=== PATIENT | female | born 1955 | race Caucasian/White ===

== ENCOUNTER 2017-11-21 11:03 | Inpatient (IN) | payer BC, MEDICARE, SELFPAY ==
[2017-11-21] VITALS (14 sets, daily range): BP systolic 150–182; BP diastolic 88–101; PULSE 75–100; RESP 15–24; TEMP 36.2–36.3; O2SAT 94–97; BMI 57.1; BMI 62.5; BMI 62.6
--- NOTE | 2017-11-21 11:11 | RAD_ITS ---
STUDY: X-RAY CHEST REASON FOR EXAM: Female, 62 years old. Shortness of breath, dyspnea, back pain. TECHNIQUE: PA and lateral chest COMPARISON: None. FINDINGS: Osteopenia, mild kyphosis, mild multilevel thoracic spondylosis. No acute osseous process. No acute upper abdominal process. Normal cardiomediastinal silhouette, rick and pleural margins. Clear bilateral lungs. There is no infiltrate, effusion, pneumothorax. No focal suspicious pulmonary lesion. RAD/Chest PA and Lateral IMPRESSION: No acute cardiopulmonary process. Electronically Signed: Mike Bianchi, at 12:03 EDT Tel , Service support ,
--- NOTE | 2017-11-21 11:21 | NURSING ---
NO OLD EKGS
[2017-11-21] MEDS: Ipratropium/Albuterol Sulfate 3 ML AMPUL.NEB INHALATION (11:22)
--- NOTE | 2017-11-21 11:26 | ED.DCSUM_ITS ---
- ER Visit Summary Date of Service: 11/21/17 Chief Complaint: Shortness of breath History of Present Illness: The patient is a 62 F who presents with shortness of breath that has been getting worse over the past few days. Patient states her breathing is worse with any exertion. Patient states she has had similar episodes of this in the past and is seeing a payroll and benefits assistant for this. Patient admits to a cough. Patient denies any sputum production. Patient denies any fevers or chills. Patient denies any chest pain but does admit to some pain in her left shoulder and left lower thoracic area. Patient denies any nausea or vomiting. Physical Examination: Vital signs are stable. Patient is afebrile. Patient is in no acute distress. Oral mucosa is pink and moist. Neck is supple. There is no JVD noted. Heart was regular rate and rhythm. Lungs are clear and equal bilaterally. There is adequate respiratory effort noted. Abdomen is soft. Bowel sounds are normal. There is no tenderness. There is no rebound or guarding noted. Cranial nerves II through XII are intact. There are no focal motor or sensory deficits noted. The remaining physical exam is within normal limits. Test Results: EKG showed normal sinus rhythm with a rate of 87. There are nonspecific ST-T wave changes noted. D-dimer was obtained and was elevated. CTA of the chest was obtained. There is bilateral pulmonary emboli noted. There is no saddle embolus noted. Emergency Department Course and Treatment: Patient was started on anticoagulants. Case was discussed with the hospitalist. Patient will be admitted to ICU. Patient and family understood and were agreeable with the plan. All questions were answered. Disposition: Admit to hospital Impression: Bilateral pulmonary emboli This note was generated with [employer] dictation software. It may contain incorrect words, spelling, and punctuation that were not noted in review of the chart prior to signing ED Disposition - Plan for ED Patient: Disposition: Acute Care Hospital [facility] Chief Complaint: Shortness of Breath Diagnosis: Pulmonary emboli Referrals: Annia Bedolla DO [Primary Care Provider] -
[2017-11-21 11:51] LABS: Absolute Lymphocyte Count 1.88 X10^3/ul (0.83-4.51); Absolute Neutrophil Count 7.1 X10^3/uL (2.0-7.7); Basophil# 0.06 X10^3/uL; Basophil% 0.6 % (0-1); Eosinophil# 0.37 X10^3/uL; Eosinophils% 3.6 % (0-5); Hematocrit 45.6 % (37-47); Hemoglobin 14.5 g/dl (12.0-15.0); Lymphocyte # 1.88 X10^3/ul (4.0); Mean Corp Hgb Conc 31.8 g/gl (32-36); Mean Corpuscular Hgb 27.5 pg (27.0-32.0); Mean Corpuscular Volume 86.4 fL (81-99); Mean Platelet Vol. 10.8 fl (6.2-12.0); Monocyte% 9.6 % (0-10); Neutrophil # 7.06 X10^3/uL (2.7-7.7); Neutrophil % 67.7 % (47-70); Platelet Count 185 K/mm3 (150-450); RBC Distribution Width CV 15.5 % (11.6-14.6); RBC Distribution Width SD 49.2 fl (35.1-43.9); Red Blood Count 5.28 M/mm3 (4.2-5.4); White Blood Count 10.4 K/mm3 (4.4-11.0)
[2017-11-21 11:52] LABS: POSITIVE COUNT NO; POSITIVE DIFFERENTIAL NO; POSITIVE MORPHOLOGY NO
[2017-11-21 11:55] LABS: Anion Gap 9 (5-15); BUN 13 mg/dL (7-18); BUN/Creat Ratio 17.4 RATIO (10-20); Chloride 107 mmol/L (98-107); Creatinine, Serum 0.75 mg/dL (0.55-1.02); EST Glomerular Filtration Rate 83 mL/min (>60); Est Glom Filt Rate - Afr Amer 100 mL/min (>60); Estimated Creatinine Clearance 73.69 ml/min; Glucose 113 mg/dL (74-106); Potassium 3.6 mmol/L (3.5-5.1); Sodium Level 142 mmol/L (136-145)
[2017-11-21 12:00] LABS: D-Dimer Quantitative (DVT/PE) 1.93 FEU/ug/m (0.27-0.49)
[2017-11-21 12:20] LABS: BNP,B-Type NATRIURETIC PEPTIDE 80.1 pg/mL (0-100)
--- NOTE | 2017-11-21 12:31 | CT_ITS ---
STUDY: CTA CHEST REASON FOR EXAM: Female, 62 years old. Shortness of breath for one week with elevated d-dimer, worsening shortness of breath, sleep apnea. RADIATION DOSAGE (If Supplied By Facility): CTDIvol = ( 49.88 ) mGy, DLP = ( 1125.57 ) mGycm TECHNIQUE: The examination was performed with the intravenous administration of 100 ml of Isovue 370 contrast material. Post-processing of the angiographic images was performed, with multiplanar reformation and 3D reconstruction. Individualized dose optimization techniques were used for this CT. COMPARISON: X-ray chest 11/21/2017 FINDINGS: Supraclavicular: Enlarged multinodular thyroid likely reflecting substernal goiter. Clinical correlation is advised. Body wall soft tissues: No acute process. Portions of the body wall are not within the field of view due to body habitus constraints. Osseous structures: Osteopenia, multilevel bridging anterior osteophytes of the thoracic spine consistent with diffuse idiopathic hyperostosis. Moderate kyphosis, mild scoliosis. Mild multilevel thoracic facet arthropathy. Mild multilevel foraminal narrowing. No high-grade stenosis is suspected. Upper abdomen: Limited evaluation. No acute process. Mediastinum: Normal esophagus. There is no mass or lymphadenopathy. Lungs: Clear normal bilaterally. Normal airways. Heart: Borderline cardiomegaly without pericardial effusion and without coronary calcifications. No evidence of appendage thrombus. Grossly normal chamber morphology. There is perhaps mild ectasia of the right ventricle with no significant ectasia of the right atrium. There is mild ectasia of the infracardiac IVC. These features suggest mildly elevated right heart pressures secondary to pulmonary embolus. Aorta: Unremarkable. Pulmonary arteries: Dilated central pulmonary arteries, main pulmonary artery 3.6 cm. Bilateral pulmonary embolus extending into the bilateral lower lobes multisegmental, lingula, and bilateral upper lobes multisegmental. There is no central saddle embolus but there is embolus draping over the lobar divisions of the right main pulmonary artery, and the lobar divisions of the left main pulmonary artery. Substantial burden of embolus. CT/CTA Chest W/WO Contrast IMPRESSION: Extensive bilateral pulmonary emboli beginning at the lobar divisions of the right and left main pulmonary arteries extending into multiple upper and lower lung segmental divisions. No acute pulmonary parenchymal changes. No evidence of pulmonary infarct or infiltrate. There is evidence of mildly elevated right heart pressure/right heart strain. No acute pulmonary process. Multinodular substernal goiter. N.B. : The above information has been verbally conveyed by Mike Bianchi to , Covering Physician, on 11/21/2017 13:44:57 (ET). Electronically Signed: Mike Bianchi, at 13:41 EDT Tel , Service support ,
[2017-11-21 14:13] LABS: Partial Thromboplast Time 29.7 Seconds (24.1-36.2)
--- NOTE | 2017-11-21 14:43 | NURSING ---
PCU PE TERELETSKY
--- NOTE | 2017-11-21 14:48 | NURSING ---
Called ED charge nurse to send patient at [phone].
--- NOTE | 2017-11-21 15:09 | PCM.HP.STD ---
Problem List (1) Pulmonary emboli Status: Acute (2) Atypical endometrial hyperplasia Status: Chronic (3) HTN (hypertension) Status: Chronic (4) Morbidly obese Status: Chronic History of Present Illness Date of Admission: 11/21/17 Chief Complaint: sob The patient is a 62 year old F with a PMhx of htn, atypical endometrial hyperplasia - on megace for recurrent vaginal bleeding, who presents to the ER with increased SOB over the past 2 weeks. She states she has been worked up for SOB for the last 2 years by cardiology and pulmonology including PFT testing, and recent (last february) stress test, echo, and heart cath (per Dr. Trinidad) which were negative. In the last two weeks she has been progressively more SOB, severely so with exertion. She walked to the bathroom and started hyperventilating taking 35 minutes to recover. She has left sided posterior rib pain. She has not had any new swelling of her lower extremities. In the ER she underwent a CTA of the chest which did show multiple BL PE's. She has no prior hx of clots, and denies a family hx of clots. She has been on megace for about 2 years for the above. She states the last time she came off of it she bled again. She sees an OBGYN who specializes in oncology. She has been told that she is not a candidate for hysterectomy for unclear reasons. Currently she is resting comfortably in bed on 2 lpm O2 via NC. [] Past Medical History Past Medical History (Chronic Problems): Chronic Problems Atypical endometrial hyperplasia (Chronic) HTN (hypertension) (Chronic) Morbidly obese (Chronic) Allergies No Known Allergies Allergy (Verified 11/21/17 11:04) Home Medications: Ambulatory Orders Medication Instructions Recorded Amlodipine [Norvasc] 5 mg PO DAILY 11/21/17 Lisinopril/Hydrochlorothiazide 1 each PO DAILY 11/21/17 [Zestoretic 20-12.5 mg Tablet] Surgical History: dilatation and curettage Psychiatric History: No pertinent psych hx SCIENTOLOGIST History: dysfunctional uterine bld Lives: Spouse/ Significant Other Smoking Status: Never smoker Tobacco Use: Non-smoker Alcohol: None Drugs: None - *Family History Maternal History Items: Cancer - breast, Diabetes, Hypertension Paternal History Items: Heart Disease - [place] age 42 Review of Systems Constitutional: Denies: Chills, Fever, Weight Change HEENT: Denies: Head Aches, Sinus Congestion, Sinus Drainage Cardiovascular: Denies: Chest Pain, Palpitations Respiratory: Reports: Shortness of Breath, Shortness of breath at rest, Shortness of breath upon exertion. Denies: Cough, Sputum production Gastrointestinal: Denies: Abdominal Pain, Nausea, Vomiting Genitourinary: Denies: Dysuria Musculoskeletal: Denies: Joint Pain, Joint Tenderness Skin: Denies: Rash, Wounds Neurological: Denies: Numbness, Tingling, Focal weakness Psychiatric: Denies: Anxiety, Depression, Homicidal Ideations, Suicidal Ideations Hematologic/ Lymphatic: Denies: Easy Bruising, Easy Bleeding VTE Information - Inpt Only VTE Present on Admission: Yes VTE Mechan Device Prophylaxis: None VTE Pharm Prophylaxis ordered?: Yes Patient Problems: Active and Suspected Problems Pulmonary emboli (Acute) - Physical Exam Vital Signs Temp Pulse Resp BP Pulse Ox 97.4 F L 88 16 158/96 H 95 11/21/17 11:04 11/21/17 15:05 11/21/17 15:05 11/21/17 15:05 11/21/17 15:05 Oxygen Delivery Method Nasal Cannula Assessment/Plan All Active Problems Pulmonary emboli (Acute) 1. Acute BL multiple PEs - start xarelto, obtain AM echo. No personal/family hx of clots. On megace for atypical endocrine hyperplasia - highly prothrombotic. Pt will likely bleed if she discontinues this which will be worse 2/2 xarelto so this will be continues for now. She will need to follow up with her OBGYN/oncologist for other options. Ideally this would include hysterectomy however she has been told she is not a candidate for unclear reasons. -BNP neg. -Recent stress test, cath, echo last february per Dr. Trinidad. -CTA shows evidence of mildly elevated right heart pressure/right heart strain. -cxr neg. 2. HTN - elevated. May need additional agent through stay. 3. Morbid obesity - dietary consult. DVT ppx: covered by xarelto DC planning: Re-evaluate in AM. This patient was seen by Wil St PA-C under the supervision of Doctor Carey.
--- NOTE | 2017-11-21 15:14 | HP.PCM_ITS ---
Problem List (1) Pulmonary emboli Status: Acute (2) Atypical endometrial hyperplasia Status: Chronic (3) HTN (hypertension) Status: Chronic (4) Morbidly obese Status: Chronic History of Present Illness Date of Admission: 11/21/17 Chief Complaint: sob The patient is a 62 year old F with a PMhx of htn, atypical endometrial hyperplasia - on megace for recurrent vaginal bleeding, who presents to the ER with increased SOB over the past 2 weeks. She states she has been worked up for SOB for the last 2 years by cardiology and pulmonology including PFT testing, and recent (last february) stress test, echo, and heart cath (per Dr. Trinidad ) which were negative. In the last two weeks she has been progressively more SOB , severely so with exertion. She walked to the bathroom and started hyperventilating taking 35 minutes to recover. She has left sided posterior rib pain. She has not had any new swelling of her lower extremities. In the ER she underwent a CTA of the chest which did show multiple BL PE's. She has no prior hx of clots, and denies a family hx of clots. She has been on megace for about 2 years for the above. She states the last time she came off of it she bled again. She sees an OBGYN who specializes in oncology. She has been told that she is not a candidate for hysterectomy for unclear reasons. Currently she is resting comfortably in bed on 2 lpm O2 via NC. 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 Denies: Cough, Sputum production Gastrointestinal: Denies: Abdominal Pain, Nausea, Vomiting Genitourinary: Denies: Dysuria Musculoskeletal: Denies: Joint Pain, Joint Tenderness Skin: Denies: Rash, Wounds Neurological: Denies: Numbness, Tingling, Focal weakness Psychiatric: Denies: Anxiety, Depression, Homicidal Ideations, Suicidal Ideations Hematologic/ Lymphatic: Denies: Easy Bruising, Easy Bleeding VTE Information - Inpt Only VTE Present on Admission: Yes VTE Mechan Device Prophylaxis: None VTE Pharm Prophylaxis ordered?: Yes Patient Problems: Active and Suspected Problems Pulmonary emboli (Acute) - Physical Exam Vital Signs Temp Pulse Resp BP Pulse Ox 97.4 F L 88 16 158/96 H 95 11/21/17 11:04 11/21/17 15:05 11/21/17 15:05 11/21/17 15:05 11/21/17 15:05 Oxygen Delivery Method Nasal Cannula Assessment/Plan All Active Problems Pulmonary emboli (Acute) 1. Acute BL multiple PEs - start xarelto, obtain AM echo. No personal/family hx of clots. On megace for atypical endocrine hyperplasia - highly prothrombotic. Pt will likely bleed if she discontinues this which will be worse 2/2 xarelto so this will be continues for now. She will need to follow up with her OBGYN/ oncologist for other options. Ideally this would include hysterectomy however she has been told she is not a candidate for unclear reasons. -BNP neg. -Recent stress test, cath, echo last february per Dr. Trinidad. -CTA shows evidence of mildly elevated right heart pressure/right heart strain. -cxr neg. 2. HTN - elevated. May need additional agent through stay. 3. Morbid obesity - dietary consult. DVT ppx: covered by xarelto DC planning: Re-evaluate in AM. This patient was seen by Wil St PA-C under the supervision of Doctor Carey.
[2017-11-21] MEDS: HEPARIN/D5w 25,000 UNITS 25,000 UNITS/250 ML IV.SOLN. 20 UNITS IV (15:15)
[2017-11-21] MEDS: Rivaroxaban 15 MG Tablet PO (16:45)
[2017-11-22] VITALS (10 sets, daily range): BP systolic 145–154; BP diastolic 80–81; PULSE 62–141; RESP 18–24; TEMP 36.5–36.8; O2SAT 92–97
[2017-11-22] MEDS: Rivaroxaban 15 MG Tablet PO (09:53)
[2017-11-22] MEDS: Lisinopril 20 MG Tablet PO (09:53)
[2017-11-22] MEDS: HYDROCHLOROTHIAZIDE 12.5 MG CAPSULE PO (09:53)
[2017-11-22] MEDS: amLODIPine 5 MG Tablet PO (09:53)
--- NOTE | 2017-11-22 11:00 | CASEMGMT ---
Face to Face with patient for initial transition planning/care coordination assessment. ESSENCE MYERS introduced self and role at [facility], pt voices understanding and consents to assessment at this time. Pt is lying in bed in no distress at this time. Pt is A/Ox4 at this time and answers all questions appropriately at this time. Care providers, pharmacy, and demographics verified. See attached link. Pt voices no further concerns/needs at this time. Advised pt to ask for CM if any further questions/concerns/needs arise, voices understanding. PLAN: Home [facility] ESSENCE MYERS
--- NOTE | 2017-11-22 11:13 | PCM.DC ---
- Discharge Diagnoses Current Active Problems: Current Active and Chronic Problems Pulmonary emboli (Acute) Atypical endometrial hyperplasia (Chronic) HTN (hypertension) (Chronic) Morbidly obese (Chronic) You will use the following diet at home:: Cardiac Your food should be the consistency of: Regular Your liquids should be the consistency of: Regular/Thin Discharge Activity: Return to Normal Activity Allergies/Adverse Reactions: Allergies No Known Allergies Allergy (Verified 11/21/17 11:04) Medications to take at Discharge Amlodipine [Norvasc] 5 mg PO DAILY 11/21/17 Ergocalciferol [Vitamin D] 5,000 units PO DAILY 11/21/17 Fish Oil/Dha/Epa [Fish Oil 1,200 mg Fish Oil] 1 each PO QHS 11/21/17 Lisinopril/Hydrochlorothiazide [Zestoretic 20-12.5 mg Tablet] 1 each PO DAILY 11/21/17 [place]-3S/Dha/Epa/Fish Oil [Fish Oil 1,200 mg Softgel] 2 each PO DAILY 11/21/17 Rivaroxaban [Xarelto] 15 mg PO BIDCM #40 tab 11/22/17 Rivaroxaban [Xarelto] 20 mg PO DAILY #30 tab 11/22/17 The following prescriptions were given: Rivaroxaban [Xarelto] 15 mg PO BIDCM #40 tab Rivaroxaban [Xarelto] 20 mg PO DAILY #30 tab Primary Care Physician: Annia Bedolla DO [Primary Care Provider] - Please follow up with your Primary Care Physician in: 2 weeks Test Results: Test results from this visit will be discussed in further detail at your follow-up appointment, if applicable. Please Follow Up With: Anderson Grimes - call to confirm appointment When: November 26, 2017
--- NOTE | 2017-11-22 11:28 | CASEMGMT ---
Per Michelet DUARTE, pt to be sent home on Xarelto and med e-scribed to [facility]. Call to [facility] pharmacy and per tech, pt's co-pay is $45.00. Pt updated and voices understanding. Pt provided with Xarelto 30 day free trial card and $10 co-pay card as pt has [place] primary and [facility] secondary. Pt voices understanding on cards at this time and activation. Pt states would like [facility] if she qualifies for oxygen as her Cpap is already through them. This RN CM awaiting oxygen testing at this time. [facility] RN CM
--- NOTE | 2017-11-22 14:46 | PCM.DC.SUM ---
<Wil St - Last Filed: 11/22/17 14:46> Discharge Date and Diagnosis Date of Admission: 11/21/17 Date of Discharge: 11/22/17 - Primary Discharge Diagnosis Acute BL PE's suspect 2/2 megace therapy Atypical endometrial hyperplasia HTN Morbid obesity - Secondary Discharge Diagnosis Chronic Problems Atypical endometrial hyperplasia (Chronic) HTN (hypertension) (Chronic) Morbidly obese (Chronic) Hospital Course and Treatment Imaging Results: Echo: Interpretation Summary Normal LV size. Left ventricular systolic function is normal. The estimated ejection fraction is 65 %. Transmitral diastolic flow velocities suggest mild (stage 1) diastolic dysfunction (reversed pattern). Pulmonary artery systolic pressure is 44 mmHg. Contrast injection was performed. CT/CTA Chest W/WO Contrast IMPRESSION: Extensive bilateral pulmonary emboli beginning at the lobar divisions of the right and left main pulmonary arteries extending into multiple upper and lower lung segmental divisions. No acute pulmonary parenchymal changes. No evidence of pulmonary infarct or infiltrate. There is evidence of mildly elevated right heart pressure/right heart strain. No acute pulmonary process. Multinodular substernal goiter. RAD/Chest PA and Lateral IMPRESSION: No acute cardiopulmonary process. Operations: None Procedures: 2-D Echocardiogram Summary of Care Provided: Physical exam on day of discharge: General: Resting comfortably NAD Psych: A/Ox3 normal affect HEENT: PEARRLA AT NC Neck: Supple NT CV: RRR no m/t/r/g/h Resp: CTA Abd: [id number] Soft NT no guarding or rigidity, morbidly obese Ext: DP2+= no edema Skin: W/D normal turgor Lymph/Heme: No active bleeding or adenopathy Neuro: CN2-12 intact Hospital course: The patient is a 62 year old F with a history of morbid obesity, hypertension, atypical endometrial hyperplasia for which she is taking Megace, who presented to the emergency room with worsening of shortness of breath. The patient has had chronic shortness of breath that she has been worked up by pulmonology and cardiology for over the past year including heart catheterizations and stress test, and PFTs. She has not been given any answers. In the last week she had severely worsening of her shortness of breath. She came to the emergency room and a d-dimer was done which was elevated, followed by a CTA of the chest which demonstrated multiple bilateral PEs and a strain pattern. She was started on Xarelto admitted to the PCU on telemetry. Following day she underwent echocardiogram. This showed 65% EF, stage I diastolic dysfunction and pulmonary artery systolic pressure 44 mmHg consistent with pulmonary hypertension. The patient did not continue to require oxygen and was able to be ambulated without any further OT needs. Given her history of taking Megace and no history of personal or family of blood clots, it was felt that this was likely the cause of her emboli. We discontinued this medication at discharge. The last time she was off of that she had bleeding issues. She has not followed up with the person who prescribed it, Dr. Grimes who is an DIGGING MACHINE OPERATOR oncologist in over a year. We strongly advised her to follow-up with him within a week. I called his office in [place], where she goes for care, to report the circumstances of her hospitalization and scheduled an appointment for her for November 26 at the end of this week. She is to call and confirm this appointment with them. She likely needs to undergo a hysterectomy. I explained to her that if she has bleeding she will need to call her doctors or go to the ER as with the Xarelto therapy the bleeding could be heavier than normal. She was discharged home in stable condition. She will also need follow-up with her PCP in 1-2 weeks, and will need a follow up echo to reassess her cardiac function with an echo for follow up given the strain pattern and pulmonary htn. This patient was seen by Wil St PA-C under the supervision of Doctor Brenden. [] Discharge Diet: Low fat/ Low Cholesterol, 2000 mg Sodium Diet Discharge Activity: Return to Normal Activity Home Medications: Medications to take at Discharge Amlodipine [Norvasc] 5 mg PO DAILY 11/21/17 Ergocalciferol [Vitamin D] 5,000 units PO DAILY 11/21/17 Fish Oil/Dha/Epa [Fish Oil 1,200 mg Fish Oil] 1 each PO QHS 11/21/17 Lisinopril/Hydrochlorothiazide [Zestoretic 20-12.5 mg Tablet] 1 each PO DAILY 11/21/17 [place]-3S/Dha/Epa/Fish Oil [Fish Oil 1,200 mg Softgel] 2 each PO DAILY 11/21/17 Rivaroxaban [Xarelto] 15 mg PO BIDCM #40 tab 11/22/17 Rivaroxaban [Xarelto] 20 mg PO DAILY #30 tab 11/22/17 Following Prescrptions Were Given to Patient: Rivaroxaban [Xarelto] 15 mg PO BIDCM #40 tab Rivaroxaban [Xarelto] 20 mg PO DAILY #30 tab Primary Care Physician: Annia Bedolla DO [Primary Care Provider] - Please follow up with your Primary Care Physician in: 2 weeks Please Follow Up With: Anderson Grimes When: November 26, 2017 Medical Necessity - Tobacco Use Smoking Status: Never smoker Tobacco Use: Non-smoker Meaningful Use Info Meaningful Use Diagnoses (Choose all that apply): VTE - VTE Anticoag overlap given w/in hospital stay or rx'd at dc?: No Pt receive overlap for 5 days?: No Reason overlap not ordered, prescribed, or given for 5 days: Procedure Not Indicated <Gamaliel Wilcox - Last Filed: 11/22/17 15:09> Discharge Date and Diagnosis - Secondary Discharge Diagnosis Chronic Problems Atypical endometrial hyperplasia (Chronic) HTN (hypertension) (Chronic) Morbidly obese (Chronic) Hospital Course and Treatment Summary of Care Provided: The patient is a 62 year old F lady with history of atypical endometrial hyperplasia on Megace who presented with shortness of breath. Patient was found to have bilateral multiple pulmonary embolism. This was attributed to patient Megace which was discontinued. Patient was started on systemic anticoagulation noted to a monitored bed where she underwent subsequent evaluation included CAD echo which did demonstrate RVSP of 40 mmHg. Patient was instructed to follow-up with her DIGGING MACHINE OPERATOR to consider forms of treatment including hysterectomy. Her Megace was discontinued on discharge Patient was seen and examined with Wil St to patient being discharged is noted recommendations as above reviewed. Do concur Time spent in discharge process 45 minutes. Code Visit Inpatient E&M: 46610 Disch Hosp
== END 2017-11-22 14:24 | disposition home or self-care (01) | DRG 176 ==
LOC: ED 13:53 → PCU 14:45
PROVIDERS: Admitting Provider Internal Medicine; Emergency Provider Emergency Medicine; Family Provider Internal Medicine; PCP Internal Medicine; Visit Provider Internal Medicine
DX: I26.99 Other pulmonary embolism without acute cor pulmonale (principal); I10 Essential (primary) hypertension; E66.01 Morbid (severe) obesity due to excess calories; N85.02 Endometrial intraepithelial neoplasia [EIN]; Z79.818 Long term (current) use of other agents affecting estrogen receptors and estrogen levels; G47.30 Sleep apnea, unspecified
CPT/HCPCS: 71046; 71275; 80048; 83880; 85025; 85379; 85730; 93005; 93306; 94640; 99285; Q9957; Q9967; A4216; C8929

== ENCOUNTER → 2017-12-16 12:52 | Outpatient (CLI) | payer BC, MEDICARE, SELFPAY ==
[2017-12-16 15:15] LABS: Homocysteine 12.7 umol/L (3.2-10.7)
[2017-12-21 20:07] LABS: Protein C Antigen 157 % (60-150)
[2017-12-22 11:29] LABS: Anti-Cardiolipin Ab, IgA, Qn < 9 APL U/mL (0-11); Anti-Cardiolipin Ab, IgG, Qn < 9 GPL U/mL (0-14); Anti-Cardiolipin Ab, IgM, Qn < 9 MPL U/mL (0-12); Anti-Thrombin 3 AG, Immunol 90 % (72-124); Antithrombin 3 Function 119 % (75-135); Beta-2-Glycoprotein I IgA <9 (0-25); Beta-2-Glycoprotein I IgG <9 (0-20); Beta-2-Glycoprotein I IgM <9 (0-32); Protein C, Functional 184 % (73-180); Protein S, Free 132 % (57-157); Protein S, Funtional 99 % (63-140); Protein S, Total 109 % (60-150)
== END ==
PROVIDERS: Family Provider Internal Medicine; PCP Internal Medicine; Visit Provider Internal Medicine
DX: Z12.31 Encounter for screening mammogram for malignant neoplasm of breast (principal); I26.99 Other pulmonary embolism without acute cor pulmonale
CPT/HCPCS: 36415; 77063; 77067; 81240; 81241; 81291; 83090; 85300; 85301; 85302; 85303; 85305; 85306; 86146; 86147

== ENCOUNTER → 2017-12-27 11:05 | Outpatient (CLI) | payer BC, MEDICARE, SELFPAY ==
[2017-12-27 11:32] LABS: International Normalized Ratio 1.5; Prothrombin Time (Protime)PT. 17.8 SECONDS (11.7-14.9)
== END ==
PROVIDERS: Family Provider Internal Medicine; PCP Internal Medicine; Visit Provider Internal Medicine
DX: I26.99 Other pulmonary embolism without acute cor pulmonale (principal)
CPT/HCPCS: 85610

== ENCOUNTER → 2018-01-04 10:31 | Outpatient (CLI) | payer BC, MEDICARE, SELFPAY ==
--- NOTE | 2018-01-04 10:34 | CT_ITS ---
STUDY: CTA CHEST REASON FOR EXAM: Female, 62 years old. History of pulmonary embolism. Follow-up examination. RADIATION DOSAGE (If Supplied By Facility): CTDIvol = ( 23.83 ) mGy, DLP = ( 1095.92 ) mGycm TECHNIQUE: The examination was performed with the intravenous administration of 100 ml of Isovue 370 contrast material. Post-processing of the angiographic images was performed, with multiplanar reformation and 3D reconstruction. Individualized dose optimization techniques were used for this CT. COMPARISON: Comparison is made with prior examination dated November 21, 2017. FINDINGS: There is elevation of the right hemidiaphragm. Normal enhancement of the main pulmonary artery and right and left pulmonary arteries. Normal enhancement of the bilateral peripheral pulmonary arteries. There is no demonstrated pulmonary embolism. Normal thoracic aorta and visualized great vessels. There is no demonstrated aortic dissection. Normal heart and pericardium. There are visualized mediastinal lymph nodes, which are within normal size limits, and with normal morphology. Normal hilar regions. Normal visualized trachea and bronchi. The lungs are well expanded. Minimal increased linear markings at the left lung base suggestive of a linear scarring. Normal pleura. Normal chest wall structures. There are degenerative changes of thoracic spine. Normal visualized upper abdomen. CT/CTA Chest W/WO Contrast IMPRESSION: There is no evidence of a pulmonary embolism. Findings suggestive of mild scarring at the left lung base. Electronically Signed: Melvin Aden MD at 15:58 EDT Tel [phone], Service support ,
== END ==
PROVIDERS: Family Provider Internal Medicine; PCP Internal Medicine; Referring Provider Internal Medicine; Visit Provider Internal Medicine
DX: I26.99 Other pulmonary embolism without acute cor pulmonale (principal)
CPT/HCPCS: 71275; Q9967; A4216

== ENCOUNTER → 2018-01-10 10:00 | Outpatient (CLI) | payer BC, MEDICARE, SELFPAY ==
--- NOTE | 2018-01-10 10:05 | VDLE_ITS ---
Reason For Study: PULM EMB RIGHT LEFT GSV is normal. GSV is normal. CFV is compressible, spontaneous, phasic, CFV is compressible, spontaneous, phasic, competent and demonstrates normal competent, and demonstrates normal augmentation. augmentation. FV is compressible, spontaneous, phasic, FV is compressible, spontaneous, phasic, competent and demonstrates normal competent and demonstrates normal augmentation. augmentation. POP V is compressible, spontaneous, phasic, POP V is compressible, spontaneous, phasic, competent and demonstrates normal competent and demonstrates normal augmentation. augmentation. T/P Trunk is compressible. T/P Trunk is compressible. PTV is compressible. PTV is compressible. RT PerV is compressible. LT PerV is compressible. Procedure Exam performed in department. A preliminary report was called and/or faxed to DR ESTEVES. Interpretation Summary No evidence for acute deep venous thrombosis bilateral lower extremities with patent and compressible bilateral great saphenous veins. Ordering Physician: Santos Esteves Referring Physician: RAJEEV RODRIGUEZ Performed By: Indy Lyons, RDCS, RVT
== END ==
PROVIDERS: Family Provider Internal Medicine; PCP Internal Medicine; Referring Provider Internal Medicine Medical Oncology; Visit Provider Internal Medicine Medical Oncology
DX: I26.99 Other pulmonary embolism without acute cor pulmonale (principal)
CPT/HCPCS: 93970

== ENCOUNTER 2020-08-22 13:56 | Emergency (ER) | payer MEDICARE, SELFPAY ==
[2020-08-22 13:58] VITALS: BP 204/92; PULSE 104; RESP 22; TEMP 36.6; O2SAT 92; BMI 63.2
--- NOTE | 2020-08-22 14:04 | EKG12_ITS ---
Test Reason : CP Blood Pressure : / mmHG Vent. Rate : 087 BPM Atrial Rate : 087 BPM P-R Int : 198 ms QRS Dur : 192 ms QT Int : 434 ms P-R-T Axes : 059 -08 109 degrees QTc Int : 522 ms Normal sinus rhythm Left bundle branch block Abnormal ECG Confirmed by YASMIN DUDLEY, SARATH ([id number]), editor newspaper OLEKSANDR JUAN ([id number]) on 08/26/2020 2:55:44 PM Referred By: RAPHAEL Confirmed By:SARATH HOFFMAN MD
[2020-08-22 14:26] LABS: Absolute Lymphocyte Count 1.98 X10^3/uL (0.83-4.51); Absolute Neutrophil Count 5.3 X10^3/uL (2.0-7.7); Basophil# 0.08 X10^3/uL; Basophil% 0.9 % (0-1); Eosinophil# 0.46 X10^3/uL; Eosinophils% 5.3 % (0-5); Hematocrit 46.6 % (37-47); Hemoglobin 14.8 g/dL (12.0-15.0); Lymphocyte # 1.98 X10^3/ul (0.83-4.51); Mean Corp Hgb Conc 31.8 g/dL (32-36); Mean Corpuscular Hgb 27.2 pg (27.0-32.0); Mean Corpuscular Volume 85.5 fL (81-99); Mean Platelet Vol. 10.8 fl (6.2-12.0); Monocyte# 0.69 X10^3/uL; NRBC Flagged by Analyzer 0 % (0-5); Neutrophil # 5.32 X10^3/uL (2.7-7.7); Platelet Count 259 K/mm3 (150-450); RBC Distribution Width CV 15.3 % (11.6-14.6); RBC Distribution Width SD 47.4 fl (35.1-43.9); Red Blood Count 5.45 M/mm3 (4.2-5.4); White Blood Count 8.6 K/mm3 (4.4-11.0)
--- NOTE | 2020-08-22 14:29 | NURSING ---
PER TERRY SHARMA, BLUE TOP HEMOIZED
[2020-08-22 14:46] LABS: Anion Gap 1 (5-15); BUN 11 mg/dL (7-18); BUN/Creat Ratio 15.9 RATIO (10-20); Calcium,Total 10.3 mg/dL (8.5-10.1); Chloride 108 mmol/L (98-107); Creatinine, Serum 0.69 mg/dL (0.55-1.02); EST Glomerular Filtration Rate 90 mL/min (>60); Est Glom Filt Rate - Afr Amer 109 mL/min (>60); Estimated Creatinine Clearance 53.09 ml/min; Glucose 112 mg/dL (74-106); Potassium 4.6 mmol/L (3.5-5.1); Sodium Level 140 mmol/L (136-145)
--- NOTE | 2020-08-22 15:16 | RAD_ITS ---
STUDY: X-RAY CHEST REASON FOR EXAM: Female, 65 years old. Increased shortness of breath today, chest pain since yesterday. TECHNIQUE: PA and lateral COMPARISON: 03/10/2017. FINDINGS: Mild prominence of interstitial markings in the lower lobes.. There is no demonstrated pleural abnormality. Borderline cardiomegaly.. Normal mediastinum and rick. Normal visualized pulmonary arteries. Normal visualized aortic arch and descending thoracic aorta. Dorsal spine and shoulders demonstrate degenerative change. Normal visualized ribs, and clavicles. There is no demonstrated abnormality of the visualized soft tissue structures of the upper abdomen. No significant changes since prior exam RAD/Chest PA and Lateral IMPRESSION: Chronic interstitial changes of the lung bases. No focal infiltrate or gross pulmonary edema. Electronically Signed: Fredi Richter MD at 16:20 EDT , Service support ,
--- NOTE | 2020-08-22 15:21 | ED.VIS.CHEST ---
HPI History of Present Illness Chief Complaint: Chest Pain Detail of Chief Complaint: Dyspnea, dyspnea on exertion and pleuritic chest pain Informant: patient Onset/Context/Timing Onset: Weeks Activity at onset: gradual, light activity and exertion Timing: Continuous (The short this of breath is now continuous) and Intermittent (The chest pain is intermittent and with breathing) Quality: Positive for Pain Location: Right Parasternal and - (Right scapular region) Maximum Severity: Moderate Worsened By: Breathing Relieved By: Nothing Associated Symptoms: Positive for Dyspnea and Cough Narrative Prior Similar Symptoms: Yes (Prior pulmonary embolus, 1.5 years ago) Recent Illness/Hospitalization: No CVD Risk Factors: Positive for Hypertension; Negative for Diabetes, Hypercholesterolemia and Family History 1' </=55 PE Risk Factors: Positive for Prior DVT or PE; Negative for Recent Travel/Surgery, Recent Immobilization and Cancer TAD Risk Factors: Positive for Hypertension; Negative for Marfan's Syndrome and Family History [facility] Medical History Abnormal TSH Hypercalcemia Hyperglyceridemia Hypertension GIFTY on CPAP Osteoarthritis Thrombosis with hyperhomocysteinemia Vitamin D deficiency Home Medications amlodipine 5 mg PO DAILY 01/25/13 [History Last Taken 03/29/15] lisinopril-hydrochlorothiazide [Zestoretic 20-12.5 mg Tablet] 1 ea PO DAILY 01/03/15 [History Last Taken Unknown] fish oil-dha-epa 1 ea PO QHS 11/21/17 [History Last Taken 11/20/17 22:00] cholecalciferol (vitamin D3) [Optimal D3] 50,000 unit PO DAILY 12/30/17 [History Last Taken Unknown] folic acid 0.4 mg PO DAILY@0800 12/30/17 [History Last Taken Unknown] vitamin B complex 1 ea PO DAILY 12/30/17 [History Last Taken Unknown] ibuprofen 600 mg PO Q8H PRN PRN #20 tablet 08/22/20 [Rx Last Taken Unknown] Allergy/AdvReac Type Severity Reaction Status Date / Time No Known Allergies Allergy Verified 12/30/17 09:20 Family History Mother Hypothyroidism Diabetes Hypertension Breast cancer Father Heart disease Surgical History History of carpal tunnel release History of section History of cholecystectomy History of dilation and curettage Social History (Updated 08/22/20 @ 15:[address] Marlon Moore MD) household members: spouse housing: house Smoking Status: Never smoker alcohol intake: current alcohol intake frequency: holidays/special occasions only substance use type: does not use ROS ROS ED Constitutional Constitutional ED: Denies chills, fever(s), subjective, sweats, weight loss or other Eyes Eyes: Denies blurry vision, change in vision, diplopia or other ENT ENT ED: Denies ear pain, rhinorrhea or sore throat Cardiovascular Cardiovascular: Reports chest pain; Denies orthopnea, palpitations, paroxysmal nocturnal dyspnea or racing heartbeat Respiratory/Chest Respiratory/Chest: Reports cough, dyspnea and dyspnea on exertion; Denies orthopnea, paroxysmal nocturnal dyspnea or sputum Gastrointestinal Gastrointestinal: Denies abdominal pain, constipation, diarrhea, melena, nausea, vomiting or other Musculoskeletal Musculoskeletal: Denies arthralgias, back pain, myalgias or neck pain Integumentary Denies rash Neurologic Neurologic: Denies headache(s) or weakness Endocrine Endocrinology: Denies polydipsia, polyphagia or polyuria Hematologic/Lymphatic Hematologic/Lymphatic: Denies easy bruising EXAM Physical Exam Const Vital Signs: 08/22/20 13:58 08/22/20 15:52 08/22/20 15:53 Temperature 98 F Temperature Source Temporal Pulse Rate 104 H 78 Respiratory Rate 22 H 18 Respiratory Effort Normal Non-Labored Respiratory Pattern Normal Blood Pressure 204/92 H 176/73 H Blood Pressure Mean 129 107 Pulse Ox 92 95 95 Oxygen Delivery Method Room Air Room Air Room Air 08/22/20 16:36 Temperature Temperature Source Pulse Rate 84 Respiratory Rate 18 Respiratory Effort Respiratory Pattern Blood Pressure Blood Pressure Mean Pulse Ox 95 Oxygen Delivery Method Room Air Positive well nourished, well developed and obese General Appearance ED: well developed and NAD Nutritional Appearance: obese HEENT Reports moist mucous membranes normocephalic and atraumatic Eyes PERRL and EOMs intact bilaterally General Eye ED: Negative for pale conjunctiva or scleral icterus Neck no lymphadenopathy, supple and no JVD General: Negative for tenderness Chest Wall inspection of chest normal Resp normal respiratory effort and clear to auscultation bilaterally Effort and Inspection: respiratory distress Cardio regular rhythm and S1 normal heart sound Rate: tachycardic GI normal to inspection, nondistended, normoactive bowel sounds Back/Spine no CVA tenderness; Negative for no thoracic nor lumbar tenderness Extremity normal to inspection Extremity Narrative: There is no asymmetry, swelling, discoloration, leg vein distention, palpable cords or tenderness along the distribution of the deep venous system. General Extremety ED: Yes edema; Negative for tenderness General Extremity: edema Neuro oriented x3 and no sensory deficits noted Sensorium / Orientation: awake and alert Motor Exam: strength 5/5 throughout Psych mental status grossly normal Skin no rashes or lesions noted MDM MDM MDM Narrative Medical decision making narrative: Patient presents with pleuritic chest pain. With prior history of DVT/PE she is not PERC negative. D-dimer was obtained. If D-dimer is elevated she will need a CTA of her chest. Chest x-ray was obtained to determine if she has pneumonia or other abnormalities that may explain her dyspnea. Since patient had moderate pretest probability for PE with elevated D-dimer CTA was obtained. CTA reveals no acute pathology. Patient was discharged with diagnosis of pleurisy. Lab Data Attestation: I reviewed the patient's lab results. Labs: Laboratory Results - last 24 hr 08/22/20 08/22/20 08/22/20 14:15 14:15 14:15 WBC 8.6 RBC 5.45 H Hgb 14.8 Hct 46.6 MCV 85.5 MCH 27.2 MCHC 31.8 L RDW Std Deviation 47.4 H RDW Coeff of Benoit 15.3 H Plt Count 259 MPV 10.8 Immature Gran % (Auto) 0.800 Neut % (Auto) 62.0 Lymph % (Auto) 23.0 Wayne % (Auto) 8.0 Eos % (Auto) 5.3 H Baso % (Auto) 0.9 Absolute Neuts (auto) 5.3 Absolute Lymphs (auto) 1.98 Nucleated RBC % 0 PT Cancelled INR Cancelled D-Dimer Quant (PE/DVT) Sodium 140 Potassium 4.6 Chloride 108 H Carbon Dioxide 31.0 Anion Gap 1 L BUN 11 Creatinine 0.69 Estim Creat Clear Calc 53.09 Est GFR (MDRD) Af Amer 109 Est GFR (MDRD) Non-Af 90 BUN/Creatinine Ratio 15.9 Glucose 112 H Calcium 10.3 H Troponin I < 0.015 05/08/22/20 08/22/20 14:15 15:30 15:30 WBC 9.1 RBC 5.11 Hgb 14.0 Hct 43.9 MCV 85.9 MCH 27.4 MCHC 31.9 L RDW Std Deviation 47.9 H RDW Coeff of Benoit 15.1 H Plt Count 257 MPV 10.7 Immature Gran % (Auto) 0.700 Neut % (Auto) 64.5 Lymph % (Auto) 20.8 Wayne % (Auto) 8.2 Eos % (Auto) 4.9 Baso % (Auto) 0.9 Absolute Neuts (auto) 5.9 Absolute Lymphs (auto) 1.89 Nucleated RBC % 0 PT 12.1 INR 1.0 D-Dimer Quant (PE/DVT) Cancelled 0.65 H* Sodium Potassium Chloride Carbon Dioxide Anion Gap BUN Creatinine Estim Creat Clear Calc Est GFR (MDRD) Af Amer Est GFR (MDRD) Non-Af BUN/Creatinine Ratio Glucose Calcium Troponin I 08/22/20 15:30 WBC RBC Hgb Hct MCV MCH MCHC RDW Std Deviation RDW Coeff of Benoit Plt Count MPV Immature Gran % (Auto) Neut % (Auto) Lymph % (Auto) Wayne % (Auto) Eos % (Auto) Baso % (Auto) Absolute Neuts (auto) Absolute Lymphs (auto) Nucleated RBC % PT INR D-Dimer Quant (PE/DVT) Sodium 141 Potassium 3.6 Chloride 107 Carbon Dioxide 32.0 Anion Gap 2 L BUN 12 Creatinine 0.68 Estim Creat Clear Calc 53.09 Est GFR (MDRD) Af Amer 112 Est GFR (MDRD) Non-Af 93 BUN/Creatinine Ratio 17.8 Glucose 101 Calcium 10.3 H Troponin I Radiography Chest X-Ray - ED: 1 View, Read by ED Physician, Normal, Heart, Lungs, Mediastinum, Bony Structures and No Acute Disease Diagnostic Testing: Radiology Impression Chest X-Ray 08/22/20 15:16 IMPRESSION: Chronic interstitial changes of the lung bases. No focal infiltrate or gross pulmonary edema. Electronically Signed: Fredi Richter MD at 16:20 EDT , Service support , Chest CTA 08/22/20 15:54 IMPRESSION: Less than optimal opacification of pulmonary arteries but no evidence for pulmonary embolus Minor interstitial thickening in the lower lobes. No cardiopulmonary pathology. Electronically Signed: Fredi Richter MD at 16:46 EDT , Service support , With no abnormality on chest x-ray elevated D-dimer even after correction for age will obtain CTA of the chest to rule out pulmonary embolus. Discharge Plan Triage Chief Complaint: Chest Pain ED Provider: Marlon Moore Dx/Rx/DC Orders Clinical Impression: Pleuritic chest pain Instructions: ED Pleurisy Prescriptions: New ibuprofen 600 MG tablet 600 mg PO Q8H PRN PRN (Reason: chest pain) Qty: 20 RF: 0 No Action amlodipine 5 MG tablet 5 mg PO DAILY RF: 0 lisinopril-hydrochlorothiazide [Zestoretic] 1 EACH tablet 1 ea PO DAILY RF: 0 fish oil-dha-epa 1 EACH capsule 1 ea PO QHS RF: 0 folic acid 0.4 MG tablet 0.4 mg PO DAILY@0800 RF: 0 vitamin B complex 1 EACH capsule 1 ea PO DAILY RF: 0 cholecalciferol (vitamin D3) [Optimal D3] 50,000 UNIT capsule 50,000 unit PO DAILY RF: 0 Primary Care Provider: Annia Bedolla Referrals: Annia Bedolla DO [Primary Care Provider] - 1 Week if not improving Disposition Disposition: Home, self care
[2020-08-22 15:35] LABS: Absolute Lymphocyte Count 1.89 X10^3/uL (0.83-4.51); Absolute Neutrophil Count 5.9 X10^3/uL (2.0-7.7); Basophil# 0.08 X10^3/uL; Basophil% 0.9 % (0-1); Eosinophil# 0.45 X10^3/uL; Eosinophils% 4.9 % (0-5); Hematocrit 43.9 % (37-47); Lymphocyte # 1.89 X10^3/ul (0.83-4.51); Lymphocyte % 20.8 % (19-41); Mean Corp Hgb Conc 31.9 g/dL (32-36); Mean Corpuscular Hgb 27.4 pg (27.0-32.0); Mean Corpuscular Volume 85.9 fL (81-99); Mean Platelet Vol. 10.7 fl (6.2-12.0); Monocyte# 0.75 X10^3/uL; Monocyte% 8.2 % (0-10); NRBC Flagged by Analyzer 0 % (0-5); Neutrophil # 5.87 X10^3/uL (2.7-7.7); Neutrophil % 64.5 % (47-70); Platelet Count 257 K/mm3 (150-450); RBC Distribution Width CV 15.1 % (11.6-14.6); RBC Distribution Width SD 47.9 fl (35.1-43.9); Red Blood Count 5.11 M/mm3 (4.2-5.4); White Blood Count 9.1 K/mm3 (4.4-11.0)
[2020-08-22 15:46] LABS: Anion Gap 2 (5-15); BUN 12 mg/dL (7-18); BUN/Creat Ratio 17.8 RATIO (10-20); Calcium,Total 10.3 mg/dL (8.5-10.1); Chloride 107 mmol/L (98-107); Creatinine, Serum 0.68 mg/dL (0.55-1.02); EST Glomerular Filtration Rate 93 mL/min (>60); Est Glom Filt Rate - Afr Amer 112 mL/min (>60); Estimated Creatinine Clearance 53.09 ml/min; Glucose 101 mg/dL (74-106); Potassium 3.6 mmol/L (3.5-5.1); Prothrombin Time (Protime)PT. 12.1 SECONDS (11.7-14.9); Sodium Level 141 mmol/L (136-145)
[2020-08-22 15:52] VITALS: BP 176/73; PULSE 78; RESP 18; O2SAT 95
[2020-08-22 15:52] LABS: D-Dimer Quantitative (DVT/PE) 0.65 FEU/ug/m (0.27-0.49)
[2020-08-22 15:53] VITALS: O2SAT 95
--- NOTE | 2020-08-22 15:54 | CT_ITS ---
STUDY: CTA CHEST REASON FOR EXAM: Female, 65 years old. Moderate pretest probability with positive D-dimer RADIATION DOSAGE (If Supplied By Facility): CTDIvol = ( 25.52 ) mGy, DLP = ( 1132.32 ) mGycm TECHNIQUE: The examination was performed with the intravenous administration of IV 100mL Isovue-370. Post-processing of the angiographic images was performed, with multiplanar reformation and 3D reconstruction. Individualized dose optimization techniques were used for this CT. COMPARISON: 01/04/2018 FINDINGS: There is less than optimal opacification of the pulmonary arteries due to mildly delayed bolus and partial washout however, there is no demonstrated evidence for intraluminal clot to the level of the distal subsegmental vessels... Minor atherosclerotic changes of the aorta without evidence for aneurysm. There is no demonstrated aortic dissection. Heart is enlarged. Normal mediastinum. Normal hilar regions. Normal visualized trachea and bronchi. The lungs are well expanded. There is minor interstitial thickening at the lung bases. No focal infiltration or pulmonary nodule Normal pleura. Normal chest wall structures. Dorsal spine demonstrates degenerative change Small hiatal hernia is noted. Normal visualized upper abdomen. CT/CTA Chest W/WO Contrast IMPRESSION: Less than optimal opacification of pulmonary arteries but no evidence for pulmonary embolus Minor interstitial thickening in the lower lobes. No cardiopulmonary pathology. Electronically Signed: Fredi Richter MD at 16:46 EDT , Service support ,
[2020-08-22 16:36] VITALS: PULSE 84; RESP 18; O2SAT 95
[2020-08-22 17:11] VITALS: BP 151/87; PULSE 78; RESP 20; TEMP 36.6; O2SAT 96
[2020-08-22 17:15] VITALS: PULSE 18
== END 2020-08-22 17:15 | disposition home or self-care (01) ==
PROVIDERS: Emergency Provider Emergency Medicine; PCP Internal Medicine
DX: R07.81 Pleurodynia (principal); Z86.711 Personal history of pulmonary embolism; Z86.718 Personal history of other venous thrombosis and embolism; E66.9 Obesity, unspecified; I44.7 Left bundle-branch block, unspecified; G47.33 Obstructive sleep apnea (adult) (pediatric); I10 Essential (primary) hypertension; Z90.49 Acquired absence of other specified parts of digestive tract
CPT/HCPCS: 71046; 71275; 80048; 84484; 85025; 85379; 85610; 90471; 93005; 99285; Q9967; A4216

== ENCOUNTER 2022-06-21 20:54 | Emergency (ER) | payer MEDICARE, SELFPAY ==
[2022-06-21 20:56] VITALS: BP 171/87; PULSE 91; RESP 18; TEMP 36.7; O2SAT 97
[2022-06-21 21:10] VITALS: BMI 61.4
--- NOTE | 2022-06-21 21:10 | EKG12_ITS ---
Test Reason : CP Blood Pressure : / mmHG Vent. Rate : 097 BPM Atrial Rate : 097 BPM P-R Int : 160 ms QRS Dur : 190 ms QT Int : 410 ms P-R-T Axes : 000 -01 114 degrees QTc Int : 520 ms Normal sinus rhythm Left bundle branch block Abnormal ECG Confirmed by CHETAN DUDLEY, GER ([id number]), magazine editor OLEKSANDR JUAN ([id number]) on 06/22/2022 1:59:26 PM Referred By: Confirmed By:GER BENTON MD
[2022-06-21 21:18] VITALS: BP 147/71; BP 161/74; BP 180/111; PULSE 110; PULSE 88; PULSE 92
[2022-06-21 21:26] LABS: Absolute Lymphocyte Count 1.78 X10^3/uL (0.83-4.51); Absolute Neutrophil Count 4.9 X10^3/uL (2.0-7.7); Basophil% 1.2 % (0-1); Eosinophils% 6.1 % (0-5); Hematocrit 47.4 % (37-47); Hemoglobin 14.8 g/dL (12.0-15.0); Lymphocyte # 1.78 X10^3/ul (0.83-4.51); Lymphocyte % 21.6 % (19-41); Mean Corp Hgb Conc 31.2 g/dL (32-36); Mean Corpuscular Hgb 27.5 pg (27.0-32.0); Mean Corpuscular Volume 87.9 fL (81-99); Monocyte# 0.89 X10^3/uL; Monocyte% 10.8 % (0-10); NRBC Flagged by Analyzer 0 % (0-5); Neutrophil # 4.88 X10^3/uL (2.7-7.7); Neutrophil % 59.2 % (47-70); Platelet Count 288 K/mm3 (150-450); RBC Distribution Width CV 15.1 % (11.6-14.6); RBC Distribution Width SD 48.6 fl (35.1-43.9); Red Blood Count 5.39 M/mm3 (4.2-5.4); White Blood Count 8.2 K/mm3 (4.4-11.0)
--- NOTE | 2022-06-21 21:42 | RAD_ITS ---
EXAM: XR CHEST, 2 VIEWS CLINICAL INDICATION: Dyspnea on exertion TECHNIQUE: Frontal and lateral views of the chest. This report was created using [id number] report generation technology. COMPARISON: Previous chest radiographs of 08/22/2020. FINDINGS: LIMITATIONS: Lateral view degraded by motion artifact. LUNGS AND PLEURAL SPACES: Unremarkable. No consolidation or edema. No pneumothorax. No effusion. HEART: Chronic borderline cardiomegaly. Normal pulmonary vasculature. MEDIASTINUM: Stable minimal elongation of the thoracic aorta. Stable hilar vascular markings. BONES/JOINTS: Flowing thoracic osteophytes with fusion of several of the mid to lower thoracic disc spaces. No acute osseous abnormality. SOFT TISSUES: Unremarkable. RAD/Chest PA and Lateral IMPRESSION: No significant interval change or acute process. Electronically Signed: Benedicto Magaña MD at 22:46 EDT ,
[2022-06-21 21:47] LABS: Anion Gap 8 (5-15); BUN 16 mg/dL (7-18); BUN/Creat Ratio 23.7 RATIO (10-20); Calcium,Total 10.5 mg/dL (8.5-10.1); Chloride 107 mmol/L (98-107); Creatinine, Serum 0.68 mg/dL (0.55-1.02); EST Glomerular Filtration Rate 92 mL/min (>60); Est Glom Filt Rate - Afr Amer 111 mL/min (>60); Estimated Creatinine Clearance 52.36 ml/min; Glucose 147 mg/dL (74-106); Potassium 3.3 mmol/L (3.5-5.1); Sodium Level 145 mmol/L (136-145); Troponin-I HS 32 pg/mL (3.0-54.0)
[2022-06-21 22:03] VITALS: BP 147/67; PULSE 84; RESP 17; O2SAT 95
--- NOTE | 2022-06-21 22:16 | EDS_ITS ---
HPI History of Present Illness Chief Complaint: Chest Pain Detail of Chief Complaint: [place] like I was going to pass out on 3 separate occasions and see HPI narra Informant: patient and family Onset/Context/Timing Onset: Days Context: Sudden Onset Timing: Intermittent Quality: Sensation of passing out and see HPI neuro Location: At home Current Severity: Gone Maximum Severity: Moderate Worsened by: HPI narrative Relieved by: Nothing Associated Symptoms Associated Symptoms: Altered vision without diplopia and fluttering in her chest with a burning Narrative Narrative: Patient is a 66-year-old woman with history of hypertension who presents because of the sensation that she may pass out. This occurred after she brijesh from bed. She was sitting in a chair. She states her vision was changed and had unusual sensation in her arm and fluttering in her chest. She denied dyspnea at rest. She has chronic dyspnea with activity. She denied nausea, vomiting or diaphoresis. She had 2 additional episodes. Second 1 occurred when she was reading. The third episode occurred when she was sitting. She did not have loss of bowel or bladder dysfunction. She did not have loss of postural tone. She presently denies headache. He denies double vision blurred vision loss of vision. She denies trouble with speech or swallowing. She denied problems with balance or coordination. She denies paresthesia, anesthesia or motor weakness. Prior similar symptoms: No Recent Illness/Hospitalization: No PFSH [facility] Medical History Abnormal TSH Hypercalcemia Hyperglyceridemia Hypertension GIFTY on CPAP Osteoarthritis Thrombosis with hyperhomocysteinemia Vitamin D deficiency Home Medications amlodipine 5 mg tablet 5 mg PO DAILY 01/25/13 [History Last Taken 03/29/15] lisinopril 20 mg-hydrochlorothiazide 12.5 mg tablet (Zestoretic) 1 ea PO DAILY 01/03/15 [History Last Taken Unknown] fish oil-dha-epa 1,200 mg-144 mg-216 mg capsule 1 ea PO QHS supplement 11/21/17 [History Last Taken 11/20/17 22:00] cholecalciferol (vitamin D3) 1,250 mcg (50,000 unit) capsule (Optimal D3) 50,000 unit PO DAILY 12/30/17 [History Last Taken Unknown] folic acid 400 mcg tablet 0.4 mg PO DAILY@0800 12/30/17 [History Last Taken Unknown] vitamin B complex 1 ea PO DAILY 12/30/17 [History Last Taken Unknown] ibuprofen 600 mg tablet 600 mg PO Q8H PRN PRN chest pain #20 TABLETS 08/22/20 [Rx Last Taken Unknown] Allergy/AdvReac Type Severity Reaction Status Date / Time No Known Allergies Allergy Verified 06/21/22 20:55 Family History Mother Hypothyroidism Diabetes Hypertension Breast cancer Father Heart disease Surgical History History of carpal tunnel release History of section History of cholecystectomy History of dilation and curettage Social History household members: spouse housing: house Smoking Status: Never smoker alcohol intake: current alcohol intake frequency: holidays/special occasions only substance use type: does not use ROS ROS ED Constitutional Constitutional ED: Denies chills, fever(s), subjective, sweats or weight loss Eyes Eyes: Reports change in vision bilateral; Denies blurry vision or diplopia ENT ENT ED: Denies ear pain, rhinorrhea or sore throat Cardiovascular Cardiovascular: Reports palpitations; Denies chest pain, orthopnea, paroxysmal nocturnal dyspnea or racing heartbeat Respiratory/Chest Respiratory/Chest: Reports dyspnea on exertion; Denies cough, dyspnea, orthopnea, paroxysmal nocturnal dyspnea or sputum Gastrointestinal Gastrointestinal: Denies abdominal pain, diarrhea, nausea or vomiting Genitourinary Genitourinary ED: Denies dysuria, hematuria or urinary frequency Musculoskeletal Musculoskeletal: Denies arthralgias, back pain, myalgias or neck pain Integumentary Denies rash Neurologic Neurologic: Denies headache(s) or paresthesias Endocrine Endocrinology: Denies cold intolerance, heat intolerance, polydipsia or polyuria Hematologic/Lymphatic Hematologic/Lymphatic: Reports systems reviewed and no addt'l complaints, except as documented EXAM Physical Exam Const Vital Signs: 06/21/22 20:56 06/21/22 21:11 06/21/22 21:18 Temperature 98.1 F Temperature Source Temporal Pulse Rate 91 Pulse Rate [Lying] 88 Pulse Rate [Sitting (for 1 minute prior to obtaining)] 92 Pulse Rate [Standing (for 1 minute prior to obtaining)] 110 H Respiratory Rate 18 Respiratory Effort Normal Respiratory Pattern Normal Blood Pressure 171/87 H Blood Pressure [Lying] 147/71 H Blood Pressure [Sitting (for 1 minute prior to obtaining)] 161/74 H Blood Pressure [Standing (for 1 minute prior to obtaining)] 180/111 H Blood Pressure Mean 115 Blood Pressure Mean [Lying] 96 Blood Pressure Mean [Sitting (for 1 minute prior to obtaining)] 103 Blood Pressure Mean [Standing (for 1 minute prior to obtaining)] 134 Pulse Ox 97 Oxygen Delivery Method Room Air 06/21/22 22:03 06/21/22 22:52 06/21/22 23:53 Temperature Temperature Source Pulse Rate 84 77 82 Pulse Rate [Lying] Pulse Rate [Sitting (for 1 minute prior to obtaining)] Pulse Rate [Standing (for 1 minute prior to obtaining)] Respiratory Rate 17 16 16 Respiratory Effort Respiratory Pattern Blood Pressure 147/67 H 129/60 H 122/57 H Blood Pressure [Lying] Blood Pressure [Sitting (for 1 minute prior to obtaining)] Blood Pressure [Standing (for 1 minute prior to obtaining)] Blood Pressure Mean 93 83 78 Blood Pressure Mean [Lying] Blood Pressure Mean [Sitting (for 1 minute prior to obtaining)] Blood Pressure Mean [Standing (for 1 minute prior to obtaining)] Pulse Ox 95 95 94 Oxygen Delivery Method Room Air Room Air Room Air Positive well nourished, well developed and obese General Appearance ED: well developed and NAD; Negative for cyanotic, diaphoretic or pallor Nutritional Appearance: obese HEENT Reports moist mucous membranes HEENT Narrative: Head is atraumatic normocephalic. Ears are normal. TMs are normal. Nares patent. Posterior pharynx is normal. Eyes PERRL and EOMs intact bilaterally Eyes Narrative: There is no nystagmus. General Eye ED: Negative for pale conjunctiva or scleral icterus Neck no lymphadenopathy, supple and no JVD Neck Narrative: There are no carotid bruits. Trachea is midline. Resp normal respiratory effort and clear to auscultation bilaterally Cardio regular rate, regular rhythm, S1 normal heart sound, S2 normal heart sound and no murmurs GI normal to inspection, nondistended, normoactive bowel sounds, non-tender, non- distended and no masses; Negative for hepatosplenomegaly Back/Spine no CVA tenderness Cervical Spine: Negative for cervical spine tenderness Extremity normal to inspection General Extremety ED: Yes edema; Negative for tenderness General Extremity: edema Neuro oriented x3, CN's II-XII intact bilaterally and no sensory deficits noted Sensorium / Orientation: alert Psych mental status grossly normal Skin no rashes or lesions noted, no wounds and skin turgor normal General Skin Exam: elasticity normal; Negative for jaundice or pallor MDM MDM MDM Narrative Medical decision making narrative: Patient with symptoms that are suggestive of near syncope. Patient does not give symptoms concerning for GI bleed. Because of her unusual sensation in her chest is fluttering and tingling numbness in her left arm will obtain EKG and troponin. CBC was obtained assess white count differential and assess for anemia. If BUN is significantly elevated and the BUN to creatinine ratio is significant elevated will need to evaluate for GI bleed. Patient had an echo performed November 22, 2017. Left ventricular size was normal. Left ventricular systolic function was normal. Estimated ejection fr action was 65%. Based on trans mitral diastolic flow velocity there was concern for stage I diastolic dysfunction. Right ventricle size and function normal. Aorta was normal. Patient had a exercise stress test performed 02/05/2017. With peak pharmacologic illogic EKG no evidence of EKG changes. Nuclear stress was unremarkable as well. History & Record Review Additional record(s) reviewed:: Prior inpatient record, Prior outpatient record and Prior labs Lab Data Attestation: I reviewed the patient's lab results. Lab results narrative: CBC is unremarkable. Basic metabolic panel is remarkable for glucose of 147 with a normal CO2 anion gap. Calcium is slightly elevated. 2-hour troponin opponent is 35 with a delta 3. These are both number and delta is only 3. Therefore will discharge to home Labs: Laboratory Results - last 24 hr 06/21/22 06/21/22 06/21/22 21:15 21:15 23:20 WBC 8.2 RBC 5.39 Hgb 14.8 Hct 47.4 H MCV 87.9 MCH 27.5 MCHC 31.2 L RDW Std Deviation 48.6 H RDW Coeff of [place]oit 15.1 H Plt Count 288 MPV 11.0 Immature Gran % (Auto) 1.100 H Neut % (Auto) 59.2 Lymph % (Auto) 21.6 [place] % (Auto) 10.8 H Eos % (Auto) 6.1 H Baso % (Auto) 1.2 H Absolute Neuts (auto) 4.9 Absolute Lymphs (auto) 1.78 Nucleated RBC % 0 Sodium 145 Potassium 3.3 L Chloride 107 Carbon Dioxide 30.0 Anion Gap 8 BUN 16 Creatinine 0.68 Estim Creat Clear Calc 52.36 Est GFR (MDRD) Af Amer 111 Est GFR (MDRD) Non-Af 92 BUN/Creatinine Ratio 23.7 H Glucose 147 H Calcium 10.5 H Troponin I High Sens 32 35 Radiography Chest X-Ray - ED: 2 View and Read by ED Physician (No acute process. Cardiac silhouette and size normal. There is no infiltrate, effusion noted. Perihilar regions normal. Osseous structures are unremarkable. This was independently reviewed interpreted by me at 2236.) Diagnostic Testing: Clinical Impression(s) from Imaging Studies Chest X-Ray 06/21/22 21:42 IMPRESSION: No significant interval change or acute process. Electronically Signed: Benedicto Magaña MD at 22:46 EDT , EKG Initial EKG: Attestation: I personally reviewed and interpreted this EKG as follows: Interpretation: Sinus Rhythm (Rate is 97. Patient has a left bundle branch block. IL interval is 160 ms. Cures duration 190 ms. QT duration 410 ms.) Treatment and Re-Evaluation :: Was informed of her results. She states she was never told she had left bundle branch block. Old EKG was obtained and patient did have evidence of left bundle branch block on EKG performed August 22, 2020. Patient states she had similar episode when she was diagnosed with COVID. She also has remote history of bilateral pulmonary embolus. Discharge Plan Triage Chief Complaint: Chest Pain ED Provider: Marlon Moore Dx/Rx/DC Orders Clinical Impression: Near syncope, HTN (hypertension), Morbidly obese, Chest discomfort, Dyspnea on minimal exertion Instructions: ED Chest Pain, Uncertain Cause, ED Near-Fainting, Uncertain Cause Prescriptions: No Action amlodipine 5 MG tablet 5 mg PO DAILY lisinopril-hydrochlorothiazide [Zestoretic] 1 EACH tablet 1 ea PO DAILY Label Comments: BP fish oil-dha-epa 1 EACH capsule 1 ea PO QHS folic acid 0.4 MG tablet 0.4 mg PO DAILY@0800 vitamin B complex 1 EACH capsule 1 ea PO DAILY cholecalciferol (vitamin D3) [Optimal D3] 50,000 UNIT capsule 50,000 unit PO DAILY ibuprofen 600 MG tablet 600 mg PO Q8H PRN PRN (Reason: chest pain) Qty: 20 0RF Primary Care Provider: Annia Bedolla Referrals: Annia Bedolla DO [Primary Care Provider] - Andrei Trinidad MD [Med Staff - Active Staff] - 3-5 Days Disposition Disposition: Home, Self Care
[2022-06-21 22:52] VITALS: BP 129/60; PULSE 77; RESP 16; O2SAT 95
[2022-06-21 23:53] VITALS: BP 122/57; PULSE 82; RESP 16; O2SAT 94
[2022-06-22 00:11] LABS: Troponin-I HS 35 pg/mL (3.0-54.0)
[2022-06-22 00:39] VITALS: BP 107/68; PULSE 79; RESP 16; TEMP 36.7; O2SAT 94
== END 2022-06-22 00:43 | disposition home or self-care (01) ==
PROVIDERS: Emergency Provider Emergency Medicine; PCP Internal Medicine; Visit Provider Emergency Medicine
DX: R55 Syncope and collapse (principal); E66.01 Morbid (severe) obesity due to excess calories; I10 Essential (primary) hypertension; R07.89 Other chest pain; R06.00 Dyspnea, unspecified; G47.33 Obstructive sleep apnea (adult) (pediatric)
CPT/HCPCS: 71046; 80048; 84484; 85025; 93005; 99285; A4216

== ENCOUNTER → 2023-01-18 | Outpatient (CLI) | payer MEDICARE, SELFPAY ==
--- NOTE | 2023-01-18 11:40 | RAD_ITS ---
INDICATION: PNEUMONIA EXAMINATION/TECHNIQUE: X-RAY - XR Chest 2 Views COMPARISON: Prior study dated: 06/21/2022 FINDINGS: LINES/DEVICES: None. LUNGS: The lungs are well expanded. No consolidation, edema or effusion. No pneumothorax. MEDIASTINUM AND CARDIOVASCULAR STRUCTURES: Stable mild cardiomegaly. Central airways and mediastinal contour are unremarkable. BONES AND SOFT TISSUES: Unremarkable. RAD/Chest PA and Lateral IMPRESSION: No acute pulmonary finding. Stable mild cardiomegaly. Electronically Signed: Gamaliel Larsen MD at 17:09 EDT ,
[2023-01-18 12:27] LABS: Absolute Lymphocyte Count 1.78 X10^3/uL (0.83-4.51); Absolute Neutrophil Count 4.2 X10^3/uL (2.0-7.7); Basophil% 1.4 % (0-1); Eosinophil# 0.33 X10^3/uL; Eosinophils% 4.7 % (0-5); Hematocrit 47.1 % (37-47); Hemoglobin 14.7 g/dL (12.0-15.0); Lymphocyte # 1.78 X10^3/ul (0.83-4.51); Lymphocyte % 25.2 % (19-41); Mean Corp Hgb Conc 31.2 g/dL (32-36); Mean Corpuscular Hgb 27.7 pg (27.0-32.0); Mean Corpuscular Volume 88.7 fL (81-99); Mean Platelet Vol. 11.6 fl (6.2-12.0); Monocyte# 0.63 X10^3/uL; Monocyte% 8.9 % (0-10); NRBC Flagged by Analyzer 0 % (0-5); Neutrophil % 59.4 % (47-70); Platelet Count 244 K/mm3 (150-450); RBC Distribution Width CV 15.5 % (11.6-14.6); RBC Distribution Width SD 50.6 fl (35.1-43.9); Red Blood Count 5.31 M/mm3 (4.2-5.4); White Blood Count 7.1 K/mm3 (4.4-11.0)
[2023-01-18 13:38] LABS: Thyroid Stim Hormone (TSH) 0.01 uIU/mL (0.358-3.74)
== END | disposition home or self-care (01) ==
LOC: LAB 11:17
PROVIDERS: PCP Internal Medicine; Referring Provider Internal Medicine; Visit Provider Internal Medicine
DX: R79.89 Other specified abnormal findings of blood chemistry (principal); J18.9 Pneumonia, unspecified organism; I51.7 Cardiomegaly
CPT/HCPCS: 36415; 71046; 84443; 85025